=== PATIENT | female | born 1995 | race Caucasian/White ===

== ENCOUNTER 2017-02-06 11:17 | Emergency (ER) | payer OTHER ==
[2017-02-06 11:23] VITALS: RESP 18; TEMP 97.3; O2SAT 99
--- NOTE | 2017-02-06 11:38 | EDPHY ---
General Narrative: CHIEF COMPLAINT: "Anal abscess" HISTORY OF PRESENT ILLNESS: Patient reports an abscess near her anus over the past 3 days. She 1st noted 3 days ago. It is steadily worsened from mild to severe pain. No spontaneous drainage but she did attempt to press on it, as well as "stuck it with a needle." No reports of surrounding erythema. No fever chills. No nausea or vomiting. No diarrhea constipation. No vaginal pain. No stool from the vagina. No other associated complaints or modifying factors. No history of this. REVIEW OF SYSTEMS: Ten systems reviewed and are negative unless otherwise noted in the HPI PERTINENT MEDICAL HISTORY: None EXAMINATION General Appearance: Alert, no distress Head: normocephalic, atraumatic Eyes: Pupils equal and round, no conjunctival pallor or injection ENT, Mouth: Mucous membranes moist Neck: Normal inspection, supple, non-tender Cardiovascular: Regular rate and rhythm. No murmur. Gastrointestinal: Abdomen is soft and nontender. No tympany rigidity. Rectal exam: Female [employer] Justice present. There is a 1.5 x 2 cm area of induration with central area of drainage at the 3 o'clock position perianal. There is no surrounding erythema. It is painful to palpation. There is no fluctuance. Neurological: A&O, nonfocal, normal gait Skin: Warm and dry, no rash Extremities: Nontender, no pedal edema Psychiatric: Mood and affect normal DIFFERENTIAL DIAGNOSES: Including but not limited to perianal abscess, perirectal abscess, buttock abscess, abscess, edema, phlegmon MDM: 12:00 p.m. Perianal abscess that is 1.5 x 2 cm by palpation. Given the proximity I will obtain a CT scan of the pelvis. I-STAT has been ordered. We will verify status with urine test prior to CT scan. She is in no acute distress and no pain at rest. 1:[address] Garcia that there is no evidence of abscess on the CT scan. He did note some inflammation but no definite evidence of abscess. I consulted general surgery Dr. Hurley. He agrees with our plan to treat the patient outpatient. He recommends Augmentin. He also agrees with warm compresses and soaks. He informed us that 1 of his partners will see the patient on Wednesday in the office as he is out of town. I discussed this with the patient she is comfortable with this plan. Additionally I will provide a short course of pain medication should she need that. She is to return to ER for worsening pain, fever, chills or difficulty with bowel movements. She is comfortable with this plan and discharged home in stable condition. SUPERVISION: This patient was independently evaluated without direct examination by the attending physician. Case was discussed with attending physician. General surgery consult by telephone with Dr. Hurley - History Smoking Status: Current every day smoker - Objective Vital Signs: Initial Vital Signs Temperature (C) 97.3 F 02/06/17 11:21 Heart Rate 63 02/06/17 11:21 Respiratory Rate 18 02/06/17 11:21 Blood Pressure 150/64 H 02/06/17 11:21 O2 Sat (%) 99 02/06/17 11:21 O2 Delivery Mode Room Air Allergies/Adverse Reactions: No Known Allergies Allergy (Verified 02/06/17 11:19) Home Medications: Medication Instructions Recorded Amoxicillin/Clavulanate Pot 875 mg PO BID #20 tab 02/06/17 [Augmentin 875 MG TAB (*)] oxyCODONE HCL/ACETAMINOPHEN 1 each PO Q4-6PRN PRN #15 tablet 02/06/17 [Percocet 5-325 mg Tablet] Laboratory Results: 02/06/17 02/06/17 12:01 12:00 POC Hgb 16.0 gm/dL H gm/dL (12.3-15.9) POC Hct 47 % % (35.5-47.5) POC Sodium 143 mEq/L mEq/L (134-144) POC Potassium 3.8 mEq/L mEq/L (3.3-5.0) POC Chloride 101 mEq/L mEq/L (96-108) POC BUN 13 mg/dL mg/dL (7-23) POC Creatinine 0.7 mg/dL mg/dL (0.6-1.2) POC Glucose 82 mg/dL mg/dL (70-100) Urine Test Pending Medications Given: Discontinued Medications Sodium Chloride (Ns) 1,000 mls @ 0 mls/hr IV ONCE ONE PRN Reason: Wide Open Stop: 02/06/17 11:59 Last Admin: 02/06/17 12:09 Dose: 1,000 mls Point of Care Test Results: 02/06/17 12:01 POC Sodium 143 POC Potassium 3.8 POC Chloride 101 POC BUN 13 POC Creatinine 0.7 POC Glucose 82 Departure - Departure Disposition: Home, Routine, Self-Care Clinical Impression: Inflammation, Phlegmon Condition: Good Instructions: Abscess (ED), Warm Compress or Soak (ED) Additional Instructions: Continue medication as prescribed. Warm compresses frequently. Return to ER for worsening pain, fever or chills. Follow-up with General surgery on Wednesday Referrals: JOEY DEY [Primary Care Provider] - As per Instructions Michael Hurley MD [Medical Doctor] - As per Instructions Prescriptions: Amoxicillin/Clavulanate Pot [Augmentin 875 MG TAB (*)] 875 mg PO BID #20 tab oxyCODONE HCL/ACETAMINOPHEN [Percocet 5-325 mg Tablet] 1 each PO Q4-6PRN PRN # 15 tablet PRN Reason: Pain, Breakthrough
[2017-02-06] MEDS ORDERED: NS 1,000 ML IV ONE (11:58)
[2017-02-06] MEDS ORDERED: IOPAMIDOL (ISOVUE-300) 100 ML BTL IV ONE (12:11)
[2017-02-06 13:08] VITALS: BP 91/44; PULSE 65
== END 2017-02-06 13:29 | disposition home or self-care (01) ==
DX: K61.0 Anal abscess (principal); F17.200 Nicotine dependence, unspecified, uncomplicated
CPT/HCPCS: 82947-QW; Q9967